=== PATIENT | female | born 1990 ===

== ENCOUNTER 2023-05-15 04:24 | Inpatient (IN) | payer SELFPAY ==
[2023-05-15] MEDS ORDERED: Citric Acid/Sodium Citrate Solution 30 ML Cup PO ONE (06:04)
[2023-05-15] MEDS ORDERED: Metoclopramide 10 MG/2 ML SDV IVPUSH ONE (06:04)
[2023-05-15] MEDS: Lactated Ringers 1,000 ML IV SCH ×2 (06:10→07:39)
[2023-05-15 06:25] LABS: BASOPHILS PERCENT AUTO 0.3 % (0.0-1.0); EOSINOPHILS PERCENT AUTO 0.5 % (0.0-6.0); HEMATOCRIT 34.5 % (37.0-47.0); HEMOGLOBIN 11.8 gm/dl (12.0-16.0); IMMATURE GRAN ABSOLUTE AUTO 0.07 K/mm3 (0.00-0.05); IMMATURE GRAN PERCENT AUTO 1.1 % (0.0-0.4); LYMPHOCYTES ABSOLUTE AUTO 1.5 K/mm3 (1.0-4.8); LYMPHOCYTES PERCENT AUTO 24.5 % (24.0-44.0); MEAN CORPUSCULAR HEMOGLOBIN 30.3 pg (28.0-32.0); MEAN CORPUSCULAR HGB CONC 34.2 g/dl (32.0-36.0); MEAN CORPUSCULAR VOLUME 88.7 fl (83.0-99.0); MEAN PLATELET VOLUME 10.8 fl (9.4-12.3); MONOCYTES ABSOLUTE AUTO 0.5 K/mm3 (0.0-0.8); MONOCYTES PERCENT AUTO 8.5 % (0.0-8.0); NEUTROPHILS PERCENT AUTO 65.1 % (41.0-71.0); PLATELET COUNT,PLT 146 K/mm3 (150-400); RED BLOOD CELL COUNT 3.89 M/mm3 (4.10-5.30); WHITE BLOOD CELL COUNT,WBC 6.21 K/mm3 (3.9-11.3)
[2023-05-15] MEDS ORDERED: Ondansetron 4 MG/2 ML SDV ONE (06:33)
[2023-05-15] MEDS ORDERED: Morphine PF 10 MG/10 ML SDV ONE (06:33)
[2023-05-15] MEDS ORDERED: Ketorolac 30 MG/ML SDV ONE (06:33)
[2023-05-15] MEDS ORDERED: Oxytocin 10 Units/1 ML SDV ONE (06:33)
[2023-05-15] MEDS ORDERED: fentaNYL 100 MCG/2 ML SDV ONE (06:33)
[2023-05-15] MEDS ORDERED: ceFAZolin 2 GM Vial ONE (06:38)
[2023-05-15] MEDS ORDERED: Bupivacaine 0.5% 30 ML SDV ONE (07:13)
[2023-05-15] MEDS ORDERED: ceFAZolin 2 GM in Sodium Chloride 0.9% 50 ML IV ONE (07:15)
[2023-05-15] MEDS ORDERED: Oxytocin/Lactated Ringers 30 UNIT/500 ML BAG IV SCH (08:00)
[2023-05-15] MEDS ORDERED: Lactated Ringers 1,000 ML ONE (08:18)
[2023-05-15] MEDS ORDERED: Ondansetron 4 MG/2 ML SDV IVPUSH PRN (08:35)
[2023-05-15] MEDS ORDERED: fentaNYL 100 MCG/2 ML SDV IVPUSH PRN (08:35)
[2023-05-15] MEDS ORDERED: diphenhydrAMINE 50 MG/ML SDV IVPUSH PRN ×2 (08:35→10:56)
[2023-05-15] MEDS ORDERED: Naloxone 0.4 MG/ML SDV IVPUSH PRN (10:56)
[2023-05-15] MEDS ORDERED: Dextrose 5%-Lactated Ringers 1,000 ML IV SCH (10:56)
[2023-05-15] MEDS ORDERED: Acetaminophen/oxyCODONE 325-5 MG Tab PO PRN (10:56)
[2023-05-15] MEDS ORDERED: Magnesium Hydroxide 400 MG/5 ML Susp 30 ML Cup PO PRN (10:56)
[2023-05-15] MEDS ORDERED: ePHEDrine 50 MG/ML SDV IVPUSH PRN (10:56)
[2023-05-15] MEDS: Ketorolac 30 MG/ML SDV IVPUSH SCH ×2 (14:48→20:36)
[2023-05-15] MEDS: Docusate Sodium 100 MG Cap PO SCH (22:20)
[2023-05-16] MEDS: Ketorolac 30 MG/ML SDV IVPUSH SCH (02:58)
[2023-05-16] MEDS: Docusate Sodium 100 MG Cap PO SCH ×4 (05:55→21:35)
[2023-05-16 06:28] LABS: BASOPHILS PERCENT AUTO 0.3 % (0.0-1.0); EOSINOPHILS PERCENT AUTO 0.6 % (0.0-6.0); HEMATOCRIT 25.2 % (37.0-47.0); HEMOGLOBIN 8.7 gm/dl (12.0-16.0); IMMATURE GRAN ABSOLUTE AUTO 0.06 K/mm3 (0.00-0.05); IMMATURE GRAN PERCENT AUTO 0.8 % (0.0-0.4); LYMPHOCYTES ABSOLUTE AUTO 1.1 K/mm3 (1.0-4.8); LYMPHOCYTES PERCENT AUTO 15.8 % (24.0-44.0); MEAN CORPUSCULAR HEMOGLOBIN 30.7 pg (28.0-32.0); MEAN CORPUSCULAR HGB CONC 34.5 g/dl (32.0-36.0); MEAN PLATELET VOLUME 10.8 fl (9.4-12.3); MONOCYTES ABSOLUTE AUTO 0.6 K/mm3 (0.0-0.8); MONOCYTES PERCENT AUTO 8.3 % (0.0-8.0); NEUTROPHILS ABSOLUTE AUTO 5.2 K/mm3 (1.8-7.7); NEUTROPHILS PERCENT AUTO 74.2 % (41.0-71.0); PLATELET COUNT,PLT 106 K/mm3 (150-400); RED BLOOD CELL COUNT 2.83 M/mm3 (4.10-5.30); WHITE BLOOD CELL COUNT,WBC 7.07 K/mm3 (3.9-11.3)
[2023-05-16] MEDS: Ibuprofen 600 MG Tab PO PRN ×2 (10:09→21:26)
[2023-05-16] MEDS: Prenatal Multivitamin with Calcium/Folic Acid/Iron Tab PO SCH (10:09)
[2023-05-16] MEDS: Acetaminophen/oxyCODONE 325-5 MG Tab PO PRN ×2 (12:48→19:18)
[2023-05-16] MEDS: Simethicone 80 MG Tab.Chew PO PRN (19:52)
[2023-05-17] MEDS: Acetaminophen/oxyCODONE 325-5 MG Tab PO PRN ×2 (00:53→08:19)
[2023-05-17] MEDS: Docusate Sodium 100 MG Cap PO SCH (08:18)
[2023-05-17] MEDS: Prenatal Multivitamin with Calcium/Folic Acid/Iron Tab PO SCH (08:18)
[2023-05-17] MEDS: Simethicone 80 MG Tab.Chew PO PRN (08:18)
== END 2023-05-17 10:37 | disposition home or self-care (01) | DRG 788 ==
LOC: JD.OB 05:58
PROVIDERS: ADMIT Obstetrics & Gynecology; ATTEND Obstetrics & Gynecology
PROC: 10D00Z1 Extraction of Products of Conception, Low, Open Approach (ICD-10-PCS; principal; 2023-05-15 08:00)
DX: O34.211 Maternal care for low transverse scar from previous cesarean delivery (principal); Z37.0 Single live birth; Z3A.38 38 weeks gestation of pregnancy
CPT/HCPCS: 01961; 36415; 59025; 85025; 86592; 86850; 86900; 86901; A9270-GY; J0690; J1885; J2274; J2405; J2590; J2765; J3010; J3490; J7120; J7121